=== PATIENT | female | born 2000 | race American Indian/Alaskan Native ===

== ENCOUNTER 2021-03-14 07:22 | Emergency (ER) | payer OTHER ==
--- NOTE | 2021-03-14 07:28 | Emergency Department Report ---
ED Back Pain/Injury HPI - General Chief Complaint: Back Pain/Injury Stated Complaint: BACK PAIN Time Seen by Provider: 03/14/21 07:28 Source: patient, EMS Limitations: No Limitations - History of Present Illness Initial Comments: Patient was brought in by ambulance due to back pain. She has been having back pain for the last day or 2. 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 This is caused her back pain. Today, she is complaining of lower back pain, nausea, upset stomach, generalized malaise, and generalized weakness. She has no chest pain or shortness of breath. There is no vomiting or diarrhea. She has had no dysuria or frequency. Patient states that she has had no recent injuries. When she was in [place], she was treated with prednisone. Her doctor in [place] took her off prednisone before she relocated here. Her physician here has not restarted steroids. Patient has no other complaint. She has no symptoms of infection that she would report. She states that this is her usual flareup of NMO. - Related Data Previous Rx's Medication Instructions Recorded Last Taken Type Lidocaine [Lidoderm] 1 each TP DAILY #30 patch 03/14/21 Unknown Rx Ondansetron [Zofran ODT TAB] 8 mg PO Q8HR PRN #20 tab.rapdis 03/14/21 Unknown Rx methylPREDNISolone [Medrol 4MG 4 mg PO DAILY #1 pack 03/14/21 Unknown Rx DOSEPAK (21 tabs)] Allergies Allergy/AdvReac Type Severity Reaction Status Date / Time avocado Allergy Unknown Verified 03/14/21 07:23 ED Review of Systems ROS: Stated complaint: BACK PAIN Other details as noted in HPI Comment: All other systems reviewed and negative Constitutional: denies: fever Eyes: denies: vision change ENT: denies: throat pain Respiratory: denies: cough Cardiovascular: denies: chest pain Endocrine: denies: unexplained weight loss Gastrointestinal: as per HPI Genitourinary: denies: dysuria Musculoskeletal: as per HPI Skin: denies: rash Neurological: denies: headache Hematological/Lymphatic: denies: easy bruising ED Past Medical Hx - Past Medical History Additional medical history: Neuromyelitis optica - Family History Family history: no significant - Medications Home Medications: Home Medications Medication Instructions Recorded Confirmed Last Taken Type Lidocaine [Lidoderm] 1 each TP DAILY #30 patch 03/14/21 Unknown Rx Ondansetron [Zofran ODT TAB] 8 mg PO Q8HR PRN #20 tab.rapdis 03/14/21 Unknown Rx methylPREDNISolone [Medrol 4MG 4 mg PO DAILY #1 pack 03/14/21 Unknown Rx DOSEPAK (21 tabs)] ED Physical Exam - General Limitations: No Limitations, Other (Pulse ox noted and normal) General appearance: alert, in no apparent distress - Head Head exam: Present: atraumatic, normocephalic - Eye Eye exam: Present: normal appearance, EOMI. Absent: scleral icterus - ENT ENT exam: Present: normal orophraynx, normal external ear exam - Neck Neck exam: Present: normal inspection. Absent: meningismus - Respiratory Respiratory exam: Present: normal lung sounds bilaterally. Absent: respiratory distress - Cardiovascular Cardiovascular Exam: Present: normal rhythm, tachycardia - GI/Abdominal GI/Abdominal exam: Present: soft. Absent: distended, tenderness - Extremities Exam Extremities exam: Present: normal capillary refill - Back Exam Back exam: Present: paraspinal tenderness (Diffuse lumbar). Absent: CVA tenderness (R), CVA tenderness (L) - Neurological Exam Neurological exam: Present: alert, oriented X3, CN II-XII intact, normal gait, reflexes normal, other (Negative straight leg raise). Absent: motor sensory deficit - Psychiatric Psychiatric exam: Present: normal affect, normal mood - Skin Skin exam: Present: warm, dry ED Course Vital Signs 03/14/21 03/14/21 07:23 12:14 Temperature 99.1 F Pulse Rate 88 Respiratory 16 12 Rate Blood Pressure 142/84 [Left] O2 Sat by Pulse 97 Oximetry - Reevaluation(s) Reevaluation #1: 03/14/21 07:28 EMS was met upon arrival. Old records noted. Reevaluation #2: 03/14/21 12:22 Labs have been noted. IV could not be established. Patient has requested that we administer meds other than through an IV route. She is amenable to IM route. These were ordered. Patient was safely discharged. ED Medical Decision Making - Lab Data Result diagrams: 03/14/21 08:54 - Medical Decision Making Patient presents with reports of an exacerbation of neuromyelitis optica. Her focus of complaint was pain. She did not have neurologic deficit. She had no urinary symptoms to suggest urinary tract infection. She was not . There is no electrolyte derangement or other metabolic derangement. She did not have a fever suggestive of infectious complication. I do not believe this represents epidural abscess. She has no history of IV drug abuse or diabetes. She is not immunocompromised at this time as she has not recently been on steroids. I do not believe MRI is necessary for evaluation of epidural abscess. There is no trauma or cord impingement syndrome. She has no symptoms of cauda equina. Critical Care Time: No Critical care attestation.: If time is entered above; I have spent that time in minutes in the direct care of this critically ill patient, excluding procedure time. ED Disposition Clinical Impression: Nausea Back pain Qualifiers: Back pain location: low back pain Chronicity: acute Back pain laterality: bilateral Sciatica presence: without sciatica Qualified Code(s): M54.50 - Low back pain, unspecified Disposition: 01 HOME / SELF CARE / HOMELESS Is pt being admited?: No Condition: Stable Instructions: Acute Back Pain, Adult, Nausea and Vomiting, Adult Additional Instructions: LIMIT LIFTING. USE ICE. SEE YOUR REGULAR DOCTOR FOR RECHECK. Prescriptions: Lidocaine [Lidoderm] 1 each TP DAILY #30 patch methylPREDNISolone [Medrol 4MG DOSEPAK (21 tabs)] 4 mg PO DAILY #1 pack Ondansetron [Zofran ODT TAB] 8 mg PO Q8HR PRN #20 tab.rapdis PRN Reason: Nausea Referrals: PRIMARY CARE, [Primary Care Provider] - 3-5 Days
[2021-03-14] MEDS ORDERED: KETOROLAC 30 MG/1 ML INJ IV ONE (07:30)
[2021-03-14] MEDS ORDERED: SODIUM CHLORIDE 0.9% 1000 ML 1,000 ML IV ONE (07:30)
[2021-03-14] MEDS ORDERED: methOCARBAMOL 1,000 MG in SODIUM CHLORIDE 0.9% 250ML 250 ML IV ONE (08:30)
[2021-03-14] MEDS ORDERED: fentaNYL 100 MCG/2 ML INJ IV ONE (09:06)
[2021-03-14 09:30] LABS: BUN/Creatinine Ratio 20; Blood Urea Nitrogen 10 mg/dL (7-17); Calcium 9.5 mg/dL (8.4-10.2); Hemolysis Index 13
[2021-03-14] MEDS ORDERED: methylPREDNISolone ACETATE 80 MG/1 ML INJ IM ONE (12:13)
[2021-03-14] MEDS ORDERED: MORPHINE 4 MG/1 ML INJ IM ONE (12:13)
[2021-03-14] MEDS ORDERED: ONDANSETRON 4 MG ODT TAB PO ONE (12:13)
[2021-03-14 12:46] VITALS: BP 126/90
== END 2021-03-14 12:46 | disposition home or self-care (01) ==
LOC: ED 07:22
DX: M54.50 Low back pain, unspecified (principal); R11.0 Nausea; Z91.018 Allergy to other foods; Z79.899 Other long term (current) drug therapy
CPT/HCPCS: 36415; 80048; 84703; 96372; 99283; J1040; J1885; J2270; J2800; J7030; J7050; J3490; Q0162

== ENCOUNTER 2021-03-15 17:02 | Emergency (ER) | payer OTHER ==
[2021-03-15 17:12] VITALS: BP 112/66
--- NOTE | 2021-03-15 21:38 | Emergency Department Report ---
ED Neuro Deficit HPI - General Chief Complaint: Pain General Stated Complaint: MRI Time Seen by Provider: 03/15/21 19:50 Source: patient Mode of arrival: Ambulatory Limitations: No Limitations - History of Present Illness Initial Comments: 20-year-old female with a past medical history of neuromyelitis optica presents to the hospital with complaints of acute worsening of chronic back pain yesterday and nausea. Patient was seen here yesterday by ED physician treated with steroids, pain medication, subsequently discharged on Zofran, Lidoderm, and methylprednisone. Patient recently relocated here from [place] in December and does not have a neurologist locally. Patient's mother emergently flew here from [place] due to concerns that her child symptoms might be representing an acute flare and requesting a stat MRI and need for possible emergent treatment. Patient has had NMO x1 year it initially presented with persistent nausea or vomiting. She has been admitted in the past after being discharged with back pain upon the recommendation of her neurologist to the treating ED physician. Currently patient denies any neurologic symptoms such as numbness, weakness, urinary incontinence, and has unchanged chronically slow gait. Patient states that her nausea yesterday has since resolved and there is no reports of vomiting. Mom has been trying to assist with patient obtaining a local neurologist and has contacted the [facility] and is in the process of having her records transferred locally. Patient is currently on Enspryng and h as required IVIG infusion and Rituxan infusion in the past. Patient has not filled the medications prescribed during yesterday's ED visit. - Related Data Home Medications: Previous Rx's Medication Instructions Recorded Last Taken Type Lidocaine [Lidoderm] 1 each TP DAILY #30 patch 03/14/21 Unknown Rx Ondansetron [Zofran ODT TAB] 8 mg PO Q8HR PRN #20 tab.rapdis 03/14/21 Unknown Rx methylPREDNISolone [Medrol 4MG 4 mg PO DAILY #1 pack 03/14/21 Unknown Rx DOSEPAK (21 tabs)] Allergies/Adverse Reactions: Allergies Allergy/AdvReac Type Severity Reaction Status Date / Time avocado Allergy Unknown Verified 03/14/21 07:23 ED Review of Systems ROS: Stated complaint: MRI Other details as noted in HPI Comment: All other systems reviewed and negative ED Past Medical Hx - Past Medical History Previous Medical History?: Yes Additional medical history: Neuromyelitis optica - Surgical History Past Surgical History?: Yes - Medications Home Medications: Home Medications Medication Instructions Recorded Confirmed Last Taken Type Lidocaine [Lidoderm] 1 each TP DAILY #30 patch 03/14/21 Unknown Rx Ondansetron [Zofran ODT TAB] 8 mg PO Q8HR PRN #20 tab.rapdis 03/14/21 Unknown Rx methylPREDNISolone [Medrol 4MG 4 mg PO DAILY #1 pack 03/14/21 Unknown Rx DOSEPAK (21 tabs)] ED Neuro Physical Exam - General Limitations: No Limitations Suspected Stroke: No - Other Other exam information: General: No acute distress Head: Atraumatic Eyes: normal appearance Neck: Normal appearance, no midline tenderness Chest: Clear to auscultation bilaterally CV: Regular rate and rhythm Abdomen: Soft, normal bowel sounds, nontender, nondistended, no rebound or guarding Back: No lumbar tenderness Extremity: 5/5 lower extremity and upper extremity strength. Gait steady and able to climb up on examination table unassisted. 1+ bilateral patellar reflexes. Sensation grossly intact without reports of paresthesia Neuro: Alert O x 3, no facial asymmetry, speech clear, no gross motor sensory deficit Psych: Appropriate behavior Skin: No rash ED Course Vital Signs 03/15/21 17:10 Temperature 98.1 F Pulse Rate 67 Respiratory 16 Rate Blood Pressure 112/66 [Left] O2 Sat by Pulse 96 Oximetry - Consultations Consultation #1: 03/15/21 Discussed case with telemetry neurologist radio communication coordinator Dr. Eisenberg who was not able to provide any specific recommendation since he specializes primarily in strokes. He recommends to contact neurologist at a tertiary care center who 03/15/21 22:31 I did discuss case with neurologist Dr. Pham via [facility] transfer line. He agrees that since patient does not currently have any acute neurologic symptoms she does not meet indication for emergent MRI and transfer. Recommend to continue her current Enspryng and follow-up with a neurologist as outpatient. Patient requires emergent neurologic evaluation due to acute neurologic symptoms recommends for patient to present to [facility] system given they have neurologist on staff and 24 access to MRI if needed. - Medical Decision Making 20-year-old female presents with her mom who expresses concern that patient is having an NMO flare. Patient only complained of some mild worsening her acute on chronic back pain and denies any acute neurologic symptoms and states that her previous nausea has since resolved. Patient was ambulating at her baseline, able to step and get on a elevated examination table without assistance, does not have any focal weakness on examination, and denies any bowel, bladder incontinence, or paresthesias. At the consultation with neurologist at [facility], he agrees that patient does not meet indication for acute MRI and does not require emergent transfer given lack of neurologic findings. Does encourage outpatient evaluation and follow-up. Patient instructed to go to a facility such as [facility] who have the neurologist on staff and MRI capabilities if develops neurologic symptoms. Mother expresses understanding and will continue to attend follow-up with [facility] and also will be provided follow-up number for [facility] neurology. Critical Care Time: No Critical care attestation.: If time is entered above; I have spent that time in minutes in the direct care of this critically ill patient, excluding procedure time. ED Disposition Clinical Impression: Acute exacerbation of chronic low back pain, Neuromyelitis optica Disposition: HOME / SELF CARE / HOMELESS Is pt being admited?: No Condition: Stable Instructions: Acute Back Pain, Adult Additional Instructions: Follow-up with the neurologist as above outpatient. You are welcome to return here if symptoms worsen however, I recommend that you follow-up with a tertiary care hospital such as [facility] or [facility] if symptoms worsen and you develop worsening neurologic symptoms. These hospitals have neurologist on staff and have access to 24-hour MRI if needed Referrals: PRIMARY CAREMD [Primary Care Provider] - 3-5 Days [facility], Neurologist [Other] - 3-5 Days (Call the number above to schedule an appointment with an [facility] neurologist.) BUDDY BERGMAN MD [Staff Physician] - 3-5 Days (Primary care doctor) Time of Disposition: 22:39
--- NOTE | 2021-03-17 06:13 | Emergency Department Report ---
Blank Doc - Documentation Documentation: [facility] Consult Note # Demographics Consult Type: General Neurology Patient Location: Emergency Room First Name: Tierney Last Name: Dhruv Date of : 2000 Age: 20 Gender: Female Facility: [facility] Time of Initial Page (Eastern Time): 03/15/2021, 20:29 Time of Return Call (Eastern Time): 03/15/2021, 20:30 Phone Only Consult: 20 yo woman with NMO, new to area from [place], moved in december. Was in ER yesterday for back pain and now with worsening back pain. For ER doctor, now new neurologic findings. But continues to have back pain. Mother is adamant that these symptoms are related to NMO Recommend referral to tertiary center. MRI unable to happen in that facility until thursday morning. # Logistics Telemedicine: phone only
== END 2021-03-15 23:19 | disposition home or self-care (01) ==
LOC: ED 17:02
DX: G89.29 Other chronic pain (principal); M54.50 Low back pain, unspecified; G36.0 Neuromyelitis optica [Devic]
CPT/HCPCS: 99282